=== PATIENT | female | born 1945 | race Caucasian/White ===

== ENCOUNTER 2017-06-16 08:16 | Day surgery (SDC) | payer OTHER ==
[~2017-06-16] VITALS: Ht 154.9 cm; Wt 61.4 kg
[~2017-06-16 08:16] MED LIST: AUGM875T PO; CLIN150C14 PO; DOXY100T PO; DYAZ37.5 PO; FENO1TAB46 PO; FOSI40TA PO; HYDR-3583 PO; OMEP20TA93 PO; OXYB5TAB PO; PARO30TA2 PO; PRAV10TA PO; RANI150T PO
[2017-06-16 08:36] VITALS: BP 127/69; PULSE 76; RESP 20; TEMP 98; O2SAT 96
[2017-06-16] MEDS ORDERED: ALPR.25 PO (08:45)
[2017-06-16] MEDS ORDERED: ceFAZolin 2 GM PREMIX 50 ML - implanted port removal IV SCH (09:15)
[2017-06-16] MEDS ORDERED: MIDAZOLAM HCL 2 MG/2 ML VIAL ONE (11:28)
[2017-06-16] MEDS ORDERED: fentaNYL CITRATE 250 MCG/5 ML AMP ONE (11:28)
[2017-06-16] MEDS ORDERED: LIDOCAINE 1%/EPINEPHrine 1:100,000 SOLN 30 ML VIAL ONE (11:34)
[2017-06-16 12:20] VITALS: BP 100/60; PULSE 81; RESP 16; TEMP 98.3; O2SAT 88
--- NOTE | 2017-06-16 12:23 | PD.RAD ---
Post Procedure Progress Note Pre Procedure Diagnosis: (1) Uterine carcinosarcoma Post Procedure Diagnosis: (1) Uterine carcinosarcoma Procedure Date: Jun 16, 2017 Supervising Radiologist: Gideon Burleson Proceduralist/Assist: Yesenia Delgadillo, RT(R)(), Petr Mosqueda RT(R) Anesthesia: Local, Analgesia, Conscious Sedation Plan of Activity Patient to Unit: [facility] Patient Condition: Good See PACS Report for procedural detail/treatment Central Venous Access Device Procedure 1 Right Internal Jugular Infusaport Removal single lumen Chinese: 8 Gideon Burleson MD Jun 16, 2017 12:23
[2017-06-16 12:35] VITALS: BP 95/59; PULSE 75; RESP 18; O2SAT 95
--- NOTE | 2017-06-16 12:43 | RADRPT ---
EXAM DATE/TIME: 06/16/2017 08:46 [facility] COMPARISON: No previous studies available for comparison. INDICATIONS : Patient with a history of uterine carcinosarcoma, infusaport no longer needed. MEDICAL HISTORY : Arthritis Back pain Chicken pox Crohn's/ulcerative colitis Endometrial cancer High cholesterol Urinary incontinence PMB in 2012 SURGICAL HISTORY : Colonoscopy Back surgery ENCOUNTER: Subsequent ACUITY: > 1 year PAIN SCORE: 0/10 SEDATION TIME: 30 minutes 1.) 4 mg midazolam (Versed) IV 2.) 250 mcg fentanyl (Sublimaze) IV Prophylactic antibiotics were administered with appropriate pre-procedure timing. Vancomycin within 2 hrs of procedure, Ancef (or alternative) within 1 hr of procedure. PROCEDURE : 1. Removal of Pppria-d-[id number]. 2. Conscious sedation with continuous EKG and oximetry monitoring. The risk, benefits and potential complications of [id number] removal were discussed. Written conse nt was obtained. The patient was placed supine. The chest wall was prepped in sterile fashion. Full sterile techniqu e was used, including cap, mask, sterile gloves and gown, and a large sterile sheet. Hand hygiene an d 2% chlorhexidine and/or Betadine/alcohol prep was utilized per protocol for cutaneous antisepsis. The skin and subcutaneous tissues were infiltrated with local anesthetic solution. A small incision w as made, the subcutaneous pocket was opened. The port was dissected from the subcutaneous tissues and easily removed in one piece. The pocket incision was closed with subcuticular Vicryl suture. Steri -Strips were applied. Conscious sedation was performed with the prescribed dosages and duration as above in the presence of an independent trained radiology nurse to assist in the monitoring of the patient. EKG and oximetry remained stable throughout the procedure. The patient tolerated the procedure well and there were no complications. The patient was sent to post anesthesia recovery in stable condition. CONCLUSION: Uncomplicated port removal as above. Gideon Burleson MD on June 16, 2017 at 12:42 Board Certified Radiologist. This report was verified electronically.
[2017-06-16 13:00] VITALS: BP 95/58; PULSE 74; RESP 18; O2SAT 95
[2017-06-16 13:30] VITALS: BP 107/64; PULSE 76; RESP 18; O2SAT 97
== END 2017-06-16 14:20 | disposition home or self-care (01) ==
LOC: HROP 08:16 → HRIP 08:23 → HROP 14:20
PROVIDERS: ATTEND Obstetrics & Gynecology Gynecologic Oncology
DX: C54.1 Malignant neoplasm of endometrium (principal); E78.00 Pure hypercholesterolemia, unspecified; K50.90 Crohn's disease, unspecified, without complications
CPT/HCPCS: 36590; 99152; 99153; J0690; J2250; J3010